=== PATIENT | female | born 1950 | race Caucasian/White ===

== ENCOUNTER 2023-10-29 03:21 | Emergency (ER) | payer BC ==
[~2023-10-29] VITALS: Ht 160 cm; Wt 82.0 kg
[~2023-10-29 03:21] MED LIST: DIPH25CA83 PO; OMEP20CA14 PO; PRED5TAB48 PO
[2023-10-29 03:30] VITALS: TEMP 98; O2SAT 98
[2023-10-29 04:32] LABS: BASOPHILS % 0.8 % (0.0-2.0); EOSINOPHILS % 3.4 % (0.0-5.0); HEMATOCRIT. 41.7 % (36.0-48.0); LYMPHOCYTES % 21.6 % (20.0-50.0); MEAN CORPUSCULAR HGB CONC 33.5 g/dL (31.0-37.0); MEAN CORPUSCULAR VOLUME 92.5 fL (81.0-99.0); MEAN PLATELET VOLUME 10.1 fl (7.4-10.4); MONOCYTES % 8.9 % (2.0-8.0); NEUTROPHILS % 65.3 % (40.0-76.0); PLATELET 176 x1000/uL (130-400); RED BLOOD CELL COUNT 4.51 mill/uL (4.2-5.4); RED CELL DISTRIBUTION WIDTH 15.1 % (11.6-14.6); WHITE BLOOD COUNT 4.9 x1000/uL (4.5-11.0)
[2023-10-29] MEDS: MAGNESIUM/ALUMINUM HYDROXIDE/SIMETHICONE 30ML UDC PO NR (04:38)
[2023-10-29 04:39] LABS: CHLORIDE 109 mEq/L (98-107); POTASSIUM 3.5 mEq/L (3.5-5.1); SODIUM 143 mEq/L (136-145)
[2023-10-29 04:40] LABS: CALCIUM 9.2 mg/dL (8.7-10.4); CARBON DIOXIDE 28 mEq/L (21-32)
[2023-10-29 04:45] LABS: CREATININE 0.7 mg/dL (0.6-1.0); GLUCOSE 98 mg/dL (70-105); UREA NITROGEN BLOOD 17 mg/dL (9-23)
[2023-10-29 04:47] LABS: TROPONIN I HIGH SENSITIVITY 6 ng/L (3.0-34)
[2023-10-29 05:00] LABS: ETHANOL BLOOD < 10 mg/dL (<10)
[2023-10-29 05:56] LABS: INR 1.1; PARTIAL THROMBOPLASTIN TIME 27.4 sec (23.4-31.0); PROTHROMBIN TIME 12.4 sec (9.6-11.0)
[2023-10-29 06:56] VITALS: BP 128/63; PULSE 80; RESP 18
== END 2023-10-29 06:56 | disposition home or self-care (01) ==
LOC: ER 03:30
DX: R07.9 Chest pain, unspecified (principal); I73.00 Raynaud's syndrome without gangrene
CPT/HCPCS: 36415; 71045; 80048; 80320; 83880; 84484; 85025; 93005; 99285; G0480

== ENCOUNTER 2024-11-28 02:34 | Inpatient (IN) | payer OTHER, MEDICARE ==
[~2024-11-28] VITALS: Ht 165.1 cm; Wt 54.4 kg
[2024-11-28] VITALS (9 sets, daily range): BP systolic 107–149; BP diastolic 48–85; PULSE 68–81; RESP 15–22; TEMP 36.3–36.7516; O2SAT 73–98
[2024-11-28] MEDS: ASPIRIN 325MG TABLET PO ONE (02:57)
[2024-11-28 03:25] LABS: BASOPHILS % 0.7 % (0.0-2.0); EOSINOPHILS % 2.7 % (0.0-5.0); HEMATOCRIT. 41.4 % (36.0-48.0); HEMOGLOBIN. 13.8 g/dL (12.0-16.0); LYMPHOCYTES % 16.6 % (20.0-50.0); MEAN PLATELET VOLUME 10.1 fl (7.4-10.4); MONOCYTES % 7.4 % (2.0-8.0); NEUTROPHILS % 72.6 % (40.0-76.0); PLATELET 166 x1000/uL (130-400); RED BLOOD CELL COUNT 4.40 mill/uL (4.2-5.4); RED CELL DISTRIBUTION WIDTH 14.6 % (11.6-14.6)
[2024-11-28 03:41] LABS: CREATININE 0.8 mg/dL (0.6-1.0); UREA NITROGEN BLOOD 14 mg/dL (9-23)
[2024-11-28 03:43] LABS: TROPONIN I HIGH SENSITIVITY 5 ng/L (3.0-34)
[2024-11-28 07:17] LABS: TROPONIN I HIGH SENSITIVITY 6 ng/L (3.0-34)
[2024-11-28] MEDS ORDERED: POTASSIUM CHLORIDE 20MEQ TABLET SR PO PRN (08:45)
[2024-11-28] MEDS ORDERED: ACETAMINOPHEN 325MG TABLET PO PRN ×2 (08:45→09:00)
[2024-11-28] MEDS ORDERED: MAGNESIUM/ALUMINUM HYDROXIDE/SIMETHICONE 30ML UDC PO PRN (08:45)
[2024-11-28] MEDS ORDERED: HYDROCODONE/ACETAMINOPHEN 5/325MG TABLET PO PRN (08:45)
[2024-11-28] MEDS ORDERED: DOCUSATE SODIUM 100MG CAPSULE PO PRN (08:45)
[2024-11-28] MEDS ORDERED: CLONIDINE 0.1MG TABLET PO PRN (08:45)
[2024-11-28] MEDS ORDERED: IPRATROPIUM/ALBUTEROL 0.5-3(2.5)MG/3ML NEB HHN PRN (08:45)
[2024-11-28] MEDS ORDERED: ONDANSETRON HCL 4MG/2ML INJ IV PRN (08:45)
[2024-11-28] MEDS ORDERED: NALOXONE HCL 0.4MG/ML VIAL IV PRN (09:00)
[2024-11-28] MEDS: ENOXAPARIN 40MG/0.4ML SYR SUBCUT SCH (12:03)
[2024-11-28] MEDS: AMLODIPINE 10MG TABLET PO SCH (12:13)
[2024-11-28 13:47] LABS: HEPATITIS C AB NON REACTIVE (Neg) (Negative)
[2024-11-29] VITALS (11 sets, daily range): BP systolic 103–132; BP diastolic 48–95; PULSE 63–89; RESP 14–26; TEMP 36.5–36.9; O2SAT 71–100
[2024-11-29 06:32] LABS: CREATININE 0.8 mg/dL (0.6-1.0)
[2024-11-29 06:33] LABS: TRIGLYCERIDE 74 mg/dL (0-150); UREA NITROGEN BLOOD 12 mg/dL (9-23)
[2024-11-29 06:34] LABS: ASPARTATE AMINOTRANSFERASE 23 IU/L (<34); LDL CHOLESTEROL 57 mg/dL (5-100)
[2024-11-29 06:35] LABS: BILIRUBIN DIRECT 0.2 mg/dL (<=3.0); BILIRUBIN TOTAL 0.6 mg/dL (0.1-1.0); PHOSPHORUS 3.7 mg/dL (2.5-4.9); PROTEIN TOTAL 5.9 g/dL (6.0-8.3)
[2024-11-29 06:54] LABS: BASOPHILS % 0.8 % (0.0-2.0); EOSINOPHILS % 3.8 % (0.0-5.0); HEMATOCRIT. 44.4 % (36.0-48.0); HEMOGLOBIN. 14.9 g/dL (12.0-16.0); LYMPHOCYTES % 25.5 % (20.0-50.0); MEAN PLATELET VOLUME 10.4 fl (7.4-10.4); MONOCYTES % 12.9 % (2.0-8.0); NEUTROPHILS % 57.0 % (40.0-76.0); PLATELET 176 x1000/uL (130-400); RED BLOOD CELL COUNT 4.73 mill/uL (4.2-5.4); RED CELL DISTRIBUTION WIDTH 14.3 % (11.6-14.6)
[2024-11-30] VITALS (14 sets, daily range): BP systolic 101–135; BP diastolic 48–88; PULSE 65–84; RESP 13–25; TEMP 36.4–36.9; O2SAT 78–100
[2024-11-30 06:49] LABS: BASOPHILS % 0.8 % (0.0-2.0); EOSINOPHILS % 4.1 % (0.0-5.0); HEMATOCRIT. 43.7 % (36.0-48.0); HEMOGLOBIN. 14.9 g/dL (12.0-16.0); LYMPHOCYTES % 22.7 % (20.0-50.0); MEAN PLATELET VOLUME 10.2 fl (7.4-10.4); MONOCYTES % 10.1 % (2.0-8.0); NEUTROPHILS % 62.3 % (40.0-76.0); PLATELET 174 x1000/uL (130-400); RED BLOOD CELL COUNT 4.70 mill/uL (4.2-5.4); RED CELL DISTRIBUTION WIDTH 14.0 % (11.6-14.6)
[2024-11-30 07:08] LABS: UREA NITROGEN BLOOD 18 mg/dL (9-23)
[2024-11-30 07:09] LABS: CREATININE 0.8 mg/dL (0.6-1.0)
[2024-11-30 07:11] LABS: ASPARTATE AMINOTRANSFERASE 19 IU/L (<34); BILIRUBIN DIRECT 0.2 mg/dL (<=3.0); BILIRUBIN TOTAL 0.6 mg/dL (0.1-1.0); PHOSPHORUS 4.1 mg/dL (2.5-4.9); PROTEIN TOTAL 5.8 g/dL (6.0-8.3)
[2024-11-30] MEDS ORDERED: AMLO10TA80 PO (19:27)
[2024-12-01] VITALS (9 sets, daily range): BP systolic 103–132; BP diastolic 58–75; PULSE 67–81; RESP 14–22; TEMP 36.2–36.6; O2SAT 78–100
== END 2024-12-01 15:10 | disposition home or self-care (01) | DRG 313 ==
LOC: ER 02:58 → 5EST 04:53 → EDBEDREQTM 05:27 → EDBEDREQ 05:27 → ENRESERV 07:03
PROVIDERS: ADMIT Family Medicine Adult Medicine; ATTEND Family Medicine Adult Medicine
DX: R07.89 Other chest pain (principal); N18.6 End stage renal disease; I12.0 Hypertensive chronic kidney disease with stage 5 chronic kidney disease or end stage renal disease; F41.0 Panic disorder [episodic paroxysmal anxiety]; R79.89 Other specified abnormal findings of blood chemistry; Z99.2 Dependence on renal dialysis; Z90.710 Acquired absence of both cervix and uterus; Z79.899 Other long term (current) drug therapy
CPT/HCPCS: 36415; 71045; 80048; 80061; 80076; 83735; 83880; 84100; 84443; 84484; 85025; 86705; 87340; 93005; 93306; 93970; 99291; A4606; J1650